=== PATIENT | female | born 1980 | race African-American/Black ===

== ENCOUNTER 2016-09-01 15:33 | Emergency (ER) | payer SELFPAY ==
[~2016-09-01] VITALS: Ht 172.7 cm; Wt 143.4 kg
--- NOTE | 2016-09-01 16:56 | RAD ---
Exam performed: One view chest. Indication: chest pain Date of Service: 09/01/2016 6:16 PM Comparison: None available. Single AP upright portable view chest findings: Cardiomediastinal silhouette is within limits of normal. No acute infiltrates, effusion or pneumothorax is detected. The bony structures are normal. Impression: No acute cardiopulmonary process is detected.
[2016-09-01 17:17] LABS: BARBITURATES NEG (NEG); BENZODIAZEPINES NEG (NEG); CANNABINOIDS NEG (NEG); COCAINE NEG (NEG); METHADONE NEG (NEG); OPIATES NEG (NEG); PHENCYCLIDINE NEG (NEG)
[2016-09-01 17:18] LABS: ETHANOL, URINE NEG (NEG)
[2016-09-01 17:36] LABS: OBC FLU VALID
[2016-09-01 17:48] LABS: BASO # 0.1 x10^3/uL (0.0-0.2); BASO % 1 % (0-3); EOS % 3 % (0-3); HEMATOCRIT 25.3 % (36.0-47.0); HEMOGLOBIN 7.4 g/dL (12.0-15.5); LYMPH # 2.4 x10^3/uL (1.0-4.8); LYMPH % 22 % (24-48); MEAN CORPUSCULAR HEMOGLOBIN 17 pg (25-35); MEAN CORPUSCULAR HGB CONC 29 g/dL (31-37); MEAN CORPUSCULAR VOLUME 56 fL (79-100); MONO % 4 % (0-9); NEUT % 71 % (31-73); PLATELET COUNT 441 x10^3/uL (140-400); RED BLOOD COUNT 4.48 x10^6/uL (3.50-5.40); WHITE BLOOD COUNT 11.2 x10^3/uL (4.0-11.0)
[2016-09-01 18:07] LABS: CALCIUM 9.1 mg/dL (8.5-10.1); CREATININE 0.7 mg/dL (0.6-1.0); GFR 115.2; POTASSIUM 3.7 mmol/L (3.5-5.1)
[2016-09-01 18:13] LABS: ALBUMIN 3.6 g/dL (3.4-5.0); ALBUMIN/GLOBULIN RATIO 0.8 (1.0-1.7); TOTAL BILIRUBIN 0.4 mg/dL (0.2-1.0); TOTAL PROTEIN 7.9 g/dL (6.4-8.2)
[2016-09-01] MEDS ORDERED: TRAM-29 PO (18:32)
--- NOTE | 2016-09-01 18:33 | PHYS DOC ---
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 She states she just doesn't feel well has no energy and has had a bit of a cough. She denies any fever chills or sweats. She has not had any hemoptysis. [] Review of Systems Review of Systems Constitutional: Denies fever or chills [] Eyes: Denies change in visual acuity, redness, or eye pain [] HENT: Denies nasal congestion or sore throat [] Respiratory: Denies cough or shortness of breath [] Cardiovascular: No additional information not addressed in HPI [] GI: Denies abdominal pain, nausea, vomiting, bloody stools or diarrhea [] : Denies dysuria or hematuria [] Musculoskeletal: Denies back pain or joint pain [] Integument: Denies rash or skin lesions [] Neurologic: Denies headache, focal weakness or sensory changes [] Endocrine: Denies polyuria or polydipsia [] Allergies Allergies Allergies Coded Allergies Type Severity Reaction Last Updated Verified Penicillins Allergy Severe SOB 11/01/14 Yes morphine Allergy Severe SOB,ITCH 11/01/14 Yes Physical Exam Physical Exam Constitutional: Well developed, well nourished, no acute distress, non-toxic appearance. [] HENT: Normocephalic, atraumatic, bilateral external ears normal, oropharynx moist, no oral exudates, nose normal. [] Eyes: PERRLA, EOMI, conjunctiva normal, no discharge. [] Neck: Normal range of motion, no tenderness, supple, no stridor. [] Cardiovascular:Heart rate regular rhythm, no murmur [] Lungs & Thorax: Bilateral breath sounds clear to auscultation [] Abdomen: Bowel sounds normal, soft, no tenderness, no masses, no pulsatile masses. [] Skin: Warm, dry, no erythema, no rash. [] Back: No tenderness, no CVA tenderness. [] Extremities: No tenderness, no cyanosis, no clubbing, ROM intact, no edema. [] Neurologic: Alert and oriented X 3, normal motor function, normal sensory function, no focal deficits noted. [] Psychologic: Depressed affect Current Patient Data Vital Signs Vital Signs Date Time Temp Pulse Resp B/P Pulse Ox O2 Delivery O2 Flow Rate FiO2 09/01/16 15:44 98.4 83 14 149/81 98 Room Air 98.4 Lab Values Laboratory Tests Test 09/01/16 16:55 09/01/16 17:08 09/01/16 17:40 Urine Opiates Screen Neg (NEG) Urine Methadone Screen Neg (NEG) Urine Barbiturates Neg (NEG) Urine Phencyclidine Screen Neg (NEG) Urine Amphetamine/Methamphetamine Neg (NEG) Urine Benzodiazepines Screen Neg (NEG) Urine Cocaine Screen Neg (NEG) Urine Cannabinoids Screen Neg (NEG) Urine Ethyl Alcohol Neg (NEG) Influenza Type A Antigen Negative (NEGATIVE) Influenza Type B Antigen Negative (NEGATIVE) White Blood Count 11.2x10^3/uL (4.0-11.0) H Red Blood Count 4.48x10^6/uL (3.50-5.40) Hemoglobin 7.4g/dL (12.0-15.5) L Hematocrit 25.3% (36.0-47.0) L Mean Corpuscular Volume 56fL (79-100) L Mean Corpuscular Hemoglobin 17pg (25-35) L Mean Corpuscular Hemoglobin Concent 29g/dL (31-37) L Red Cell Distribution Width 19.0% (11.5-14.5) H Platelet Count 441x10^3/uL (140-400) H Neutrophils (%) (Auto) 71% (31-73) Lymphocytes (%) (Auto) 22% (24-48) L Monocytes (%) (Auto) 4% (0-9) Eosinophils (%) (Auto) 3% (0-3) Basophils (%) (Auto) 1% (0-3) Neutrophils # (Auto) 7.9x10^3uL (1.8-7.7) H Lymphocytes # (Auto) 2.4x10^3/uL (1.0-4.8) Monocytes # (Auto) 0.5x10^3/uL (0.0-1.1) Eosinophils # (Auto) 0.3x10^3/uL (0.0-0.7) Basophils # (Auto) 0.1x10^3/uL (0.0-0.2) Platelet Estimate Pending Sodium Level 143mmol/L (136-145) Potassium Level 3.7mmol/L (3.5-5.1) Chloride Level 106mmol/L (98-107) Carbon Dioxide Level 26mmol/L (21-32) Anion Gap 11 (6-14) Blood Urea Nitrogen 8mg/dL (7-20) Creatinine 0.7mg/dL (0.6-1.0) Estimated GFR (Cockcroft-Gault) 115.2 BUN/Creatinine Ratio 11 (6-20) Glucose Level 83mg/dL (70-99) Calcium Level 9.1mg/dL (8.5-10.1) Total Bilirubin 0.4mg/dL (0.2-1.0) Aspartate Amino Transferase (AST) 10U/L (15-37) L Alanine Aminotransferase (ALT) 18U/L (14-59) Alkaline Phosphatase 85U/L (46-116) Troponin I Quantitative < 0.017ng/mL (0.000-0.055) YS-Roa-H-Type Natriuretic Peptide 15pg/mL (0-124) Total Protein 7.9g/dL (6.4-8.2) Albumin 3.6g/dL (3.4-5.0) Albumin/Globulin Ratio 0.8 (1.0-1.7) L Laboratory Tests 09/01/16 17:40 Laboratory Tests 09/01/16 17:40 EKG EKG [] Radiology/Procedures Radiology/Procedures [] Impressions: Chest x-ray: Negative exam as interpreted by me Course & Med Decision Making Course & Med Decision Making Pertinent Labs and Imaging studies reviewed. (See chart for details) [ED course: Evaluation reveals an otherwise healthy 36-year-old female in no significant distress. I felt comfortable that this was not cardiac chest pain. Her laboratory studies were negative. I discussed the findings with the patient and let her know that I felt she was stable for discharge home. Patient agrees with this. I'll provide her with pain medication to take at home.] Dragon Disclaimer Dragon Disclaimer This electronic medical record was generated, in whole or in part, using a voice recognition dictation system. Departure Departure Impression: Primary Impression: Chest wall pain Disposition: HOME, SELF-CARE Condition: STABLE Referrals: UNKNOWN PCP NAME (PCP) Patient Instructions: Chest Pain (Nonspecific) Additional Instructions: Thank you for allowing us to participate in your care today. Followup with your primary care physician in 3 days if your symptoms do not improve. Return to the emergency department you have any new or concerning findings. This should be evaluated by the primary care physician and any necessary consulting services for continued management within a few days after discharge. Return to emergency room if you have any new or concerning symptoms including but not limited to fever, chills, nausea, vomiting, intractable pain, any new rashes, chest pain, shortness of air, uncontrolled bleeding, difficulty breathing, and/or vision loss. You may have been prescribed medication that can change in your level of thinking and ability to operate machinery. These medications include hydrocodone and Ativan. Also, Benadryl has been known to do this as well. Be sure to check with your pharmacist and ask if the medications you've prescribed can affect your level of consciousness. I recommend not operating heavy machinery or driving while on medication such as these. Scripts Tramadol Hcl (Ultram)50 Mg Tablet1 Tab PO Q6HRS PRN PAIN #20 TAB Prov:MARJORIE VASQUEZ DO 09/01/16 MARJORIE VASQUEZ DO Sep 01, 2016 18:33
--- NOTE | 2016-09-01 18:39 | EKG ---
[facility] [address] [place] [id number] Test Date: 2016-09-01 Test Time: 15:50:10 Pat Name: TAO MITCHELL Department: Room: Gender: F Ring Facer: : 1980 Requested By: MARJORIE VASQUEZ Order Number: [id number] Reading MD: Bienvenido Koenig Measurements Intervals [place] Rate: 80 P: 21 DE: 124 QRS: 24 QRSD: 84 T: 28 QT: 386 QTc: 449 Interpretive Statements SINUS RHYTHM NORMAL ECG RI6.01 Unconfirmed report No previous ECG available for comparison Electronically Signed On 09-08-2016 10:37:08 [employer] by Bienvenido Koenig
[2016-09-01 18:58] VITALS: BP 131/66
[2016-09-01 19:24] LABS: ANISOCYTOSIS SLIGHT; HYPOCHROMIA MARKED; MICROCYTOSIS MARKED; PLT ESTIMATE ADEQUATE (ADEQUATE); POLYCHROMASIA SLIGHT
== END 2016-09-01 18:59 | disposition home or self-care (01) ==
LOC: ER 15:33
DX: R07.89 Other chest pain (principal); I10 Essential (primary) hypertension; M54.30 Sciatica, unspecified side; F17.200 Nicotine dependence, unspecified, uncomplicated; Z88.0 Allergy status to penicillin; Z88.5 Allergy status to narcotic agent
CPT/HCPCS: 36415; 71010; 80053; 83880; 84484; 85007; 85027; 87804; 93005; 99285; G0481